=== PATIENT | female | born 1970 | race American Indian/Alaskan Native ===

== ENCOUNTER 2022-02-13 11:27 | Day surgery (SDC) | payer OTHER ==
[2022-02-11 11:29] LABS: Hematocrit 36.4 % (30.3-42.9); Hemoglobin 12.1 gm/dl (10.1-14.3); Mean Corpuscular HGB Conc 33 % (30-34); Mean Corpuscular Volume 80 fl (79-97); Platelet Count 253 K/mm3 (140-440); Red Blood Count 4.53 M/mm3 (3.65-5.03); Red Cell Distribution Width 17.9 % (13.2-15.2)
[2022-02-11 11:47] LABS: BUN/Creatinine Ratio 13; Blood Urea Nitrogen 10 mg/dL (7-17); Calcium 9.5 mg/dL (8.4-10.2); Hemolysis Index 5
--- NOTE | 2022-02-13 07:43 | Short Stay Summary ---
Short Stay Documentation Date of service: 02/13/22 Narrative H&P: 51-year-old -0-0-2 with a history of dysfunctional uterine bleeding and pelvic pain. The patient reports a history of endometriosis in the past. She has been unresponsive to medical management of her symptoms. She has elected to undergo definitive surgical management. - History Principal diagnosis: Dysfunctional uterine bleeding and pelvic pain Past Medical History: other (Endometriosis; pelvic inflammatory disease) Past Surgical History: total hip replacement, Other (Bariatric surgery; bunion surgery) Social history: - Allergies and Medications Current Medications: Allergies No Known Allergies Allergy (Verified 02/08/22 09:30) Home Medications Medication Instructions Recorded Confirmed Last Taken Type Levothyroxine [Synthroid] 100 mcg PO QAM 02/08/22 02/08/22 Unknown History Omeprazole 40 mg PO DAILY 02/08/22 02/08/22 Unknown History hydroCHLOROthiazide [HCTZ] 12.5 mg PO QDAY 02/08/22 02/11/22 Unknown History lisinopriL [Lisinopril] 10 mg PO DAILY 02/11/22 02/11/22 Unknown History Active Medications Acetaminophen (Acetaminophen 500 Mg Tab) 1,000 mg PO PREOP RISHI Stop: 02/13/22 23:59 Celecoxib (Celecoxib 200 Mg Cap) 200 mg PO PREOP NR Stop: 02/13/22 23:59 Fentanyl (Fentanyl 100 Mcg/2 Ml Inj) 100 mcg IV ONCE PRN PRN Reason: sedation for nerve block Stop: 02/13/22 23:59 Gabapentin (Gabapentin 300 Mg Cap) 300 mg PO PREOP NR Stop: 02/13/22 23:59 Lactated Ringer's (Lactated Ringers) 1,000 mls @ 100 mls/hr IV DIRECT RISHI Stop: 02/13/22 23:59 Methocarbamol (Methocarbamol 500 Mg Tab) 750 mg PO PREOP RISHI Stop: 02/13/22 23:59 Midazolam HCl (Midazolam 2 Mg/2 Ml Inj) 2 mg IV PREOP NR Stop: 02/13/22 23:59 Scopolamine (Scopolamine Transdermal Patch 72 Hr) 1 each TD PREOP NR Stop: 02/13/22 23:59 - Physical exam General appearance: no acute distress Integumentary: no rash HEENT: Atraumatic Lungs: Clear to auscultation Breasts: deferred Heart: Regular rate Gastrointestinal: normal - Brief post op/procedure progress note Date of procedure: 02/13/22 Pre-op diagnosis: Dysfunctional uterine bleeding Post-op diagnosis: same Procedure: Robotic hysterectomy and bilateral salpingo-oophorectomy Anesthesia: MIGUELITO Surgeon: JHOAN ELIZABETH Estimated blood loss: other (100 mL) Pathology: list (Uterus, cervix, bilateral tubes and ovaries) Specimen disposition: to lab Condition: stable - Hospital course Hospital course: The patient was admitted the day of surgery underwent a robotic hysterectomy and bilateral salpingo-oophorectomy. Please see operative note for details of surg homar. Postoperative course was uneventful. - Disposition Condition at discharge: Good Disposition: 01 HOME / SELF CARE / HOMELESS Short Stay Discharge Plan Activity: other (Pelvic rest for 6 weeks) Diet: regular Additional Instructions: Pelvic rest for [address] in 2 weeks No tub baths for 4 weeks but patient may shower.
[~2022-02-13 11:27] MED LIST: ACETAMINOPHEN 500 MG TAB PO SCH; CELECOXIB 200 MG CAP PO NR; GABAPENTIN 300 MG CAP PO NR; LACTATED RINGERS 1,000 ML IV SCH; MIDAZOLAM 2 MG/2 ML INJ IV NR; SCOPOLAMINE TRANSDERMAL PATCH 72 HR TD NR; ceFAZolin/Water 2 GM/20 ML 2 GM/20 ML SYRINGE IV NR; fentaNYL 100 MCG/2 ML INJ IV PRN
[2022-02-13] MEDS ORDERED: dexAMETHasone 4 MG/ML VIAL ONE (12:39)
[2022-02-13] MEDS ORDERED: BUPIVACAINE-EPINEPHRINE/PF 0.25%-1:200,000 (30 ML) VIAL INFILTRATI ONE (12:39)
[2022-02-13] MEDS ORDERED: dexAMETHasone 20 MG/5 ML VIAL ONE (12:48)
[2022-02-13] MEDS ORDERED: LIDOCAINE PF 100 MG/5 ML (CARDIAC SYRINGE) IV ONE (12:48)
[2022-02-13] MEDS ORDERED: ROCURONIUM 50 MG/5 ML INJ IV ONE ×2 (12:48→14:24)
[2022-02-13] MEDS ORDERED: PHENYLEPHRINE/NS 1,000 MCG/10 ML SYRINGE (OR USE) IV ONE (12:48)
[2022-02-13] MEDS ORDERED: ONDANSETRON 4 MG/2 ML INJ ONE (12:48)
[2022-02-13] MEDS ORDERED: propofoL 200 MG/20 ML VIAL IV ONE (12:49)
[2022-02-13] MEDS ORDERED: ePHEDrine SULFATE 50 MG/1 ML INJ ONE (12:49)
[2022-02-13] MEDS ORDERED: fentaNYL 100 MCG/2 ML INJ ONE (12:49)
[2022-02-13] MEDS ORDERED: oxyCODONE /ACETAMINOPHEN 5-325MG TAB PO PRN (13:12)
--- NOTE | 2022-02-13 13:12 | Anesthesia Consultation ---
Anesthesia Consult and Med Hx Date of service: 02/13/22 - Airway Anesthetic Teeth Evaluation: Good ROM Head & Neck: Adequate Mental/Hyoid Distance: Adequate Mallampati Class: Class II Intubation Access Assessment: Probably Good - Pre-Operative Health Status ASA Pre-Surgery Classification: ASA3 Proposed Anesthetic Plan: General Nerve Block: TAP - Pulmonary Hx Smoking: Yes (former smoker quit 7 yrs) Hx Respiratory Symptoms: No - Cardiovascular System Hx Hypertension: Yes (recent dx) - Central Nervous System CVA: No - Gastrointestinal Hx Gastroesophageal Reflux Disease: Yes (took omeprazole this morning) - Endocrine Hx Renal Disease: No Hx Liver Disease: No Hx Insulin Dependent Diabetes: No Hx Non-Insulin Dependent Diabetes: No Hx Hypothyroidism: Yes (took synthroid this morning) - Other Systems Hx Obesity: Yes (BMI 43) - Additional Comments Anesthesia Medical History Comments: No hx anesthetic complications.
[2022-02-13] MEDS ORDERED: ONDANSETRON 4 MG/2 ML INJ IV PRN (13:13)
[2022-02-13] MEDS ORDERED: HYDROmorphone 0.5 MG/0.5 ML INJ IV PRN (13:13)
--- NOTE | 2022-02-13 13:13 | Anesthesia Day of Surgery ---
Anesthesia Day of Surgery - Day of Surgery Patient Examined: Yes Patient H&P Reviewed: Yes Patient is NPO: Yes
[2022-02-13] MEDS ORDERED: NEOMY 40 MG/POLYMYXIN B 200,000 UNITS/ML (GU) AMPULE IR ONE ×2 (13:16→14:46)
[2022-02-13] MEDS ORDERED: KETAMINE/STERILE WATER 50 MG/ML SYRINGE ONE (14:24)
[2022-02-13] MEDS ORDERED: HYDROmorphone 0.5 MG/0.5 ML INJ ONE (14:46)
[2022-02-13] MEDS ORDERED: SODIUM CHLORIDE 0.9% IRRIG SOLN 2000 ML IR ONE (14:47)
[2022-02-13] MEDS ORDERED: SODIUM CHLORIDE 0.9% IRR 1,500 ML BOTTLE IR ONE (14:47)
[2022-02-13] MEDS ORDERED: GLYCOPYRROLATE 0.4 MG/2 ML INJ ONE (15:10)
[2022-02-13] MEDS ORDERED: PHENYLEPHRINE 10 MG/1 ML INJ SDV ONE (15:10)
--- NOTE | 2022-02-13 15:20 | Operative Report ---
Operative Report Operative Report: Date of surgery: February 13, 2022 Preoperative diagnoses: Dysfunctional uterine bleeding; anemia; pelvic pain Postoperative diagnoses: Same as above Procedure: Robotic hysterectomy and bilateral salpingo-oophorectomy Surgeon: Tari Yung M.D. Post Commander:Dr Lemus Anesthesia: Gen. endotracheal anesthesia Estimated blood loss: 100 mL Pathology: Uterus, cervix, bilateral tubes and ovaries Indication: 51-year-old -0-0-2 with a history of dysfunctional uterine bleeding and pelvic pain. The patient elected to undergo definitive surgical management. Procedure: The patient was taken to the operating room and given general endotracheal anesthesia without complication. She is prepped and draped in a normal sterile fashion. A bivalve speculum was placed in the patient's vagina and a single- tooth tenaculum placed on the anterior lip of the cervix. The uterus was sounded with the uterine sound. A stay suture was placed at 12 o'clock on the ectocervix. A Loco2 uterine manipulator was placed in the bivalve speculum was then removed. Attention was then turned to the patient's abdomen where a 8 millimeter supra umbilical skin incision was then made. A Veress needle was placed and peritoneal entry was verified water-filled syringe. Insufflation of the peritoneal cavity was performed with CO2 gas. The 8 mm trocar was then placed under direct visualization. An additional 8 mm trocar was placed on the patient's left and right lateral side just opposite of the supraumbilical trocar. An additional 5 mm right lateral trocar was then placed as the accessory port. The patient was then placed in steep Trendelenburg. The da Destini robot was then engaged. A fenestrated forcep was placed in arm 2 and a vessel sealer was placed in arm 1. The surgeon then transferred to the surgical console. General survey revealed normal size uterus with normal tubes and ovaries. The infundibulopelvic ligament was then isolated on the right. The vessel sealer was used to coagulate the ligament which was then transected. The tube and ovary were transected from the supply. The round ligament was then coagulated and transected also. The vesicouterine peritoneum was then entered from the patient's right side. The uterine vessels were then coagulated with the vessel sealer. The vessels were then transected . Attention was then turned to the patient's left side where the infundibulopelvic ligament and mesosalpinx were again isolated coagulated and transected. The vesical peritoneum was then entered from the left and joined in the midline. Peritoneum was reflected off of the lower uterine segment. Uterine vessels were then coagulated and then transected. The blood supply to the uterus was adequately contained, a posterior colpotomy was made. The V care ring was visualized. Posterior colpotomy was created with the monopolar scissors. The incision was continued circumferentially until anterior colpotomy was made. The cervix and uterus were amputated from the vaginal cuff. The uterus was then removed along with the tubes and ovaries bilaterally through the vagina and a warm laparotomy sponge was placed and maintain the pneumoperitoneum. The vaginal cuff was then closed in a running fashion with V lock suture. Irrigation of the pelvis was performed. Surgicel powder was applied to the incision. The skin was then reapproximated with 4-0 Monocryl. The tissue was sent to pathology which included the cervix, uterus, tubes and ovaries. The patient was then successfully extubated. She was then taken to the recovery room in stable condition. All sponge laps and needle counts were correct x2.
[2022-02-13 17:20] VITALS: BP 143/89
--- NOTE | 2022-02-13 18:08 | Post Anesthesia Evaluation ---
- Post Anesthesia Evaluation Patient Participated: Yes Airway Patent: Yes Stable Respiratory Function: Yes Nausea/Vomiting: No Temp > 96.8F: Yes Pain Manageable: Yes Adequeate Hydration: Yes Anesthesia Complications: No
== END 2022-02-13 11:28 | disposition home or self-care (01) ==
LOC: OR 11:27
PROVIDERS: ATTEND Obstetrics & Gynecology
DX: N93.8 Other specified abnormal uterine and vaginal bleeding (principal); D25.1 Intramural leiomyoma of uterus; N88.8 Other specified noninflammatory disorders of cervix uteri; N72 Inflammatory disease of cervix uteri; G43.909 Migraine, unspecified, not intractable, without status migrainosus; E78.00 Pure hypercholesterolemia, unspecified; I10 Essential (primary) hypertension; K21.9 Gastro-esophageal reflux disease without esophagitis; E66.9 Obesity, unspecified; E04.9 Nontoxic goiter, unspecified; D64.9 Anemia, unspecified; Z98.890 Other specified postprocedural states; Z68.41 Body mass index [BMI] 40.0-44.9, adult; Z79.899 Other long term (current) drug therapy
CPT/HCPCS: 36415; 58552; 64488; 80048; 84703; 85027; 86850; 86900; 86901; 88307; J0690; J1100; J1170; J1815; J2001; J2250; J2370; J2405; J2704; J3010; J3490; J7120; S2900; 64450